=== PATIENT | female | born 1930 | race Caucasian/White ===

== ENCOUNTER 2018-11-09 07:01 | Inpatient (IN) ==
[2018-11-09 08:12] LABS: Hematocrit 35.7 % (35.3-44.9); Hemoglobin 11.4 g/dL (11.5-15.4); Mean Corpuscular HGB Conc 31.9 g/dL (31.6-35.5); Mean Corpuscular Hemoglobin 26.5 pg (28.0-33.3); Mean Platelet Volume 9.8 fL (9.4-12.4); Platelet Count 243 K/mcL (140-400); Red Cell Distribution Width 15.1 % (11.5-14.5)
--- NOTE | 2018-11-09 08:13 | Emergency Department Note ---
Disposition Clinical Impression: Diabetes Qualifiers: Diabetes mellitus type: type 2 Diabetes mellitus fpc insulin use: unspecified fpc insulin use status Diabetes mellitus complication status: with unspecified complications Qualified Code(s): E11.8 - Type 2 diabetes mellitus with unspecified complications Hypertension Qualifiers: Hypertension type: unspecified Qualified Code(s): I10 - Essential (primary) hypertension Transient cerebral ischemia Qualifiers: Transient cerebral ischemia type: unspecified Qualified Code(s): G45.9 - Transient cerebral ischemic attack, unspecified Disposition: Admitted As Inpatient Referrals: Nacho Rai MD [Primary Care Provider] - Forms: ED Satisfaction Letter Time of Disposition: 10:03 Neuro HPI - General Chief Complaint: ED Neuro Symptoms/Deficit Stated Complaint: stroke symptoms Time Seen by Provider: 11/09/18 07:14 Source: patient, EMS Mode of arrival: EMS Limitations: no limitations Nursing Notes Reviewed: Yes Vital Signs Reviewed: Yes - History of Present Illness HPI Narrative: 88 yo female with past medical history of diabetes and hypertension presents to the emergency department with acute onset of left-sided weakness. Patient states she woke up at about 545 this morning and was going about her daily routine and noticed that her left leg felt significantly weaker to her than normal. She was unable to continue walking without holding onto something. Then when she was trying to drink her coffee her left arm was also feeling wea ker than normal and she was unable to hold the coffee cup. She has never had any symptoms like this before and has not had a stroke before. She called her son-in-law who states that her speech sounded slurred to him and he called 911. She states she is worried about stroke. She denies any headache, dizziness, lightheadedness, chest pain, shortness of breath, abdominal pain, nausea vomiting, diarrhea. She has not been recently ill. Not take any blood thinning medications. She has not had any recent surgeries. She has not recently had her head. She has never had any significant bleeding event or intracranial hemorrhage. She does have macular degeneration in her left eye but states that her vision has not changed in this eye since onset of symptoms. - Related Data Home Medications: Home Medications Medication Instructions Recorded Confirmed Amlodipine Besylate 11/09/18 11/09/18 Chlorthalidone 11/09/18 11/09/18 Levothyroxine [Synthroid] 175 mcg PO DAILY 11/09/18 11/09/18 Losartan Potassium [Cozaar] 100 mg PO DAILY 11/09/18 11/09/18 SitaGLIPtin [Januvia] 100 mg PO DAILY 11/09/18 11/09/18 All systems ED: reviewed and negative except as stated. Review of Systems: As Per HPI Constitutional: Reports: weakness. Denies: fever Cardiovascular: Denies: chest pain, dyspnea on exertion Respiratory: Denies: cough, dyspnea, wheezes Gastrointestinal: Denies: abdominal pain, nausea, vomiting Musculoskeletal: Denies: back pain, neck pain Neurological: Reports: weakness, numbness. Denies: headache, paresthesias Endocrine: Denies: fatigue Past Medical History - Past Medical History Attestation: Yes The following information was validated with the patient. Source: patient Medical history: Reports: diabetes, hypertension, thyroid disease Psychiatric history: Reports: no psych history - Social History Smoking Status: Never smoker Physical Exam - General Limitations: no limitations General appearance: alert, in no apparent distress - Head Head exam: atraumatic, normocephalic - Eye Eye exam: Present: normal appearance, PERRL, EOMI, other (Left eye with decreased peripheral vision secondary to macular degeneration, patient's baseline) - ENT ENT exam: normal exam, normal oropharynx - Neck Neck exam: Present: normal inspection. Absent: tenderness, lymphadenopathy - Chest Chest inspection: Present: normal inspection. Absent: tenderness - Respiratory Respiratory exam: Present: normal lung sounds bilaterally. Absent: wheezes - Cardiovascular Cardiovascular exam: Present: regular rate, normal rhythm, diastolic murmur - Abdominal Exam Abdominal exam: Present: soft, Non-Tender. Absent: distention, guarding, rebound, rigidity - Extremities Exam Extremities exam: Present: other (weakness present in LLE with decreased sensation and ataxia). Absent: tenderness, pedal edema - Neurological Exam Neurological exam: Present: alert, oriented X3, motor sensory deficit, other (For detailed neuro exam please refer to the NIH scale) - Psychiatric Psychiatric exam: Present: normal affect, normal mood - Skin Skin exam: Present: warm, dry, intact Course Vital Signs Temperature 98.3 F 11/09/18 07:07 Pulse Rate 78 11/09/18 07:07 Respiratory Rate 14 11/09/18 07:07 Blood Pressure 163/56 11/09/18 07:07 O2 Sat by Pulse Oximetry 98 11/09/18 07:07 Temperature 98.3 F 11/09/18 07:07 Pulse Rate 68 11/09/18 09:45 Respiratory Rate 14 11/09/18 09:45 Blood Pressure 136/44 11/09/18 09:45 O2 Sat by Pulse Oximetry 97 11/09/18 08:00 Oxygen Delivery Oxygen Delivery Room Air Neuro Symptoms/Deficit - MDM Narrative Medical decision making narrative: Patient presents with acute neuro symptoms with onset less than 1 hour prior to arrival. Patient states the left-sided weakness has been worsening since onset for a stroke alert was called. Patient was taken to CAT scan prior to EKG and blood work being done. NIH scale was performed at the bedside prior to CAT scan. Upon completion of CAT scan spoke with Dr. Robison, neurologist, from [facility] repeated NIH scale. Patient's NIH scale had resolved to a 0 at this time and CAT scan is negative or acute intracranial hemorrhage. Dr. Robison suggests that with these rapidly improving symptoms that he would not suggest any intervention but he does suggest admission for MRI and further TIA workup. This was explained to the patient and her family at this time and they are agreeable with admission. Awaiting lab results at this time. 0845 - Pt is doing well at this time. Her CT head, CXR, EKG, CBC, troponin, and PT/INR are all wnl. Creatinine is mildly elevated but at patients baseline. Pt will be admitted to the hospitalist at this time. 1000 - Pt has been accepted to the hospital by Dr. Gallardo - Medical Records Medical records reviewed: Yes I reviewed the patient's medical records. - Lab Data Lab results reviewed: Yes I reviewed the patient's lab results. Result diagrams: 11/09/18 07:52 11/09/18 07:52 Lab Results 11/09/18 11/09/18 11/09/18 Range/Units 07:52 07:52 07:52 WBC 6.5 (4.3-11.1) K/mcL RBC 4.30 (3.82-4.97) M/mcL Hgb 11.4 L (11.5-15.4) g/dL Hct 35.7 (35.3-44.9) % MCV 83.0 (83.0-100.0) fL MCH 26.5 L (28.0-33.3) pg MCHC 31.9 (31.6-35.5) g/dL RDW 15.1 H (11.5-14.5) % Plt Count 243 (140-400) K/mcL MPV 9.8 (9.4-12.4) fL PT 10.9 (9.4-12.1) Seconds INR 1.0 APTT 33.4 (26.0-36.0) Seconds Sodium 140 (136-145) mEq/L Potassium 4.0 (3.5-5.1) mEq/L Chloride 105 (98-107) mEq/L Carbon Dioxide 27 (23-29) mEq/L BUN 31 H (8-23) mg/dL Creatinine 1.23 H (0.60-1.20) mg/dL Est GFR ( Amer) 50 L (> 60) Est GFR (Non-Af Amer) 41 L (> 60) BUN/Creatinine Ratio 25 (6-26) Glucose 210 H (70-105) mg/dL Calculated Osmolality 303 H (280-300) Calcium 9.6 (8.6-10.3) mg/dL Troponin I < 0.03 (< 0.04) ng/mL - Radiology Data Radiology results reviewed: Yes I reviewed the patient's radiology results. - EKG Data EKG attestation: Yes I reviewed and interpreted this EKG. EKG results narrative: EKG obtained at 17:25 on 11/09/2018 Her rate 72 bpm, [place] interval 2:30, QRS duration 108, QT 423, QTC 463 Sinus rhythm with first-degree heart block. No acute ST segment elevations or depressions. No other T-wave abnormalities. No acute changes when compared to previous EKG dated 05/07/2004. NIH Stroke Scale - Level of Consciousness LOC: Alert - LOC Questions LOC Questions: Answers both correctly - LOC Commands LOC Commands: Performs both correctly - Best Gaze Best Gaze: Normal - Visual Visual: No visual loss - Facial Palsy Facial Palsy: Normal - Motor Arms Motor Arm-Left: No drift for 10 seconds Motor Arm-Right: No drift for 10 seconds - Motor Legs Motor Leg-Left: Drift, does NOT hit bed Motor Leg-Right: No drift for 5 seconds - Limb Ataxia Limb Ataxia: Present in ONE limb - Sensory Sensory: Mild to moderate loss, "not as sharp" - Best Language Best Language: No aphasia - Dysarthria Dysarthria: Normal - Extinction and Inattention Extinction and Inattention: Normal - NIHSS Total Score NIHSS Total Score: 3 TPA Checklist - LKW: 3-4.5 hrs Add. Warnings/Precautions Patient/family understanding: The patient/family members have been counseled and understood the risk, benefit, and alternatives of treatment.
[2018-11-09 08:22] LABS: Prothrombin Time 10.9 Seconds (9.4-12.1)
[2018-11-09 08:23] LABS: BUN/Creatinine Ratio 25 (6-26); Blood Urea Nitrogen 31 mg/dL (8-23); Calcium 9.6 mg/dL (8.6-10.3); Carbon Dioxide 27 mEq/L (23-29); Chloride 105 mEq/L (98-107); Glucose 210 mg/dL (70-105); Osmolality,Calculated 303 (280-300); Sodium 140 mEq/L (136-145); Troponin I < 0.03 ng/mL (< 0.04); eGFR For Non-African Americans 41 (> 60)
[2018-11-09 08:25] LABS: Activated Partial Thrombo Time 33.4 Seconds (26.0-36.0)
--- NOTE | 2018-11-09 08:42 | Emergency Department Note ---
Disposition Clinical Impression: Diabetes Qualifiers: Diabetes mellitus type: type 2 Diabetes mellitus nursing home insulin use: unspecified nursing home insulin use status Diabetes mellitus complication status: with unspecified complications Qualified Code(s): E11.8 - Type 2 diabetes mellitus with unspecified complications Hypertension Qualifiers: Hypertension type: unspecified Qualified Code(s): I10 - Essential (primary) hypertension Transient cerebral ischemia Qualifiers: Transient cerebral ischemia type: unspecified Qualified Code(s): G45.9 - Transient cerebral ischemic attack, unspecified Disposition: Admitted As Inpatient Forms: ED Satisfaction Letter Time of Disposition: 08:42 General Adult HPI - General Chief complaint: ED Neuro Symptoms/Deficit Stated complaint: stroke symptoms Time Seen by Provider: 11/09/18 07:14 Source: patient, EMS Mode of arrival: EMS Limitations: no limitations Nursing Notes Reviewed: Yes Vital Signs Reviewed: Yes - History of Present Illness HPI Narrative: ED attending attestation note: I examined this patient and my medical decision-making was reviewed with the emergency medicine resident TRAY CARLSON. I agree with the documented findings, disposition and treatment plan as described except to the extent set forth below. 4 any procedures performed I was present for the critical portions, and for any EKGs performed and reviewed I have looked over the EKG and interpretations and discussed with provider Briefly: A 8-year-old female no prior history of stroke woke up at 5:00 this morning medicine physician normally does this about 6:30 that she felt heavy and weak on her left leg and arm there was no speech disturbance and a score of 3 her blood sugar was 100 stroke alert was called initial head CT read by radiology as no acute process EKG shows no acute ischemic changes screening labs are within normal limits patient is not a TPA candidate will be admitted for TIA. Her symptoms are actually resolving NIH's actually dropping to 0. Admission disposition pending Pain Scale: 0 - Related Data Home Medications Medication Instructions Recorded Confirmed Amlodipine Besylate 11/09/18 11/09/18 Chlorthalidone 11/09/18 11/09/18 Levothyroxine [Synthroid] 175 mcg PO DAILY 11/09/18 11/09/18 Losartan Potassium [Cozaar] 100 mg PO DAILY 11/09/18 11/09/18 SitaGLIPtin [Januvia] 100 mg PO DAILY 11/09/18 11/09/18 Constitutional: Reports: weakness. Denies: fever Cardiovascular: Denies: chest pain, dyspnea on exertion Respiratory: Denies: cough, dyspnea, wheezes Gastrointestinal: Denies: abdominal pain, nausea, vomiting Musculoskeletal: Denies: back pain, neck pain Neurological: Reports: weakness, numbness. Denies: headache, paresthesias Endocrine: Denies: fatigue Past Medical History - Past Medical History Medical history: Reports: diabetes, hypertension, thyroid disease Psychiatric history: Reports: no psych history - Social History Smoking Status: Never smoker Physical Exam - General Limitations: no limitations General appearance: alert, in no apparent distress Course Vital Signs Temperature 98.3 F 11/09/18 07:07 Pulse Rate 78 11/09/18 07:07 Respiratory Rate 14 11/09/18 07:07 Blood Pressure 163/56 11/09/18 07:07 O2 Sat by Pulse Oximetry 98 11/09/18 07:07 Temperature 98.3 F 11/09/18 07:07 Pulse Rate 71 11/09/18 08:00 Respiratory Rate 16 11/09/18 08:00 Blood Pressure 155/46 11/09/18 08:00 O2 Sat by Pulse Oximetry 97 11/09/18 08:00 Oxygen Delivery Oxygen Delivery Room Air Medical Decision Making - Lab Data Result diagrams: 11/09/18 07:52 11/09/18 07:52 Lab Results 11/09/18 11/09/18 11/09/18 Range/Units 07:52 07:52 07:52 WBC 6.5 (4.3-11.1) K/mcL RBC 4.30 (3.82-4.97) M/mcL Hgb 11.4 L (11.5-15.4) g/dL Hct 35.7 (35.3-44.9) % MCV 83.0 (83.0-100.0) fL MCH 26.5 L (28.0-33.3) pg MCHC 31.9 (31.6-35.5) g/dL RDW 15.1 H (11.5-14.5) % Plt Count 243 (140-400) K/mcL MPV 9.8 (9.4-12.4) fL PT 10.9 (9.4-12.1) Seconds INR 1.0 APTT 33.4 (26.0-36.0) Seconds Sodium 140 (136-145) mEq/L Potassium 4.0 (3.5-5.1) mEq/L Chloride 105 (98-107) mEq/L Carbon Dioxide 27 (23-29) mEq/L BUN 31 H (8-23) mg/dL Creatinine 1.23 H (0.60-1.20) mg/dL Est GFR ( Amer) 50 L (> 60) Est GFR (Non-Af Amer) 41 L (> 60) BUN/Creatinine Ratio 25 (6-26) Glucose 210 H (70-105) mg/dL Calculated Osmolality 303 H (280-300) Calcium 9.6 (8.6-10.3) mg/dL Troponin I < 0.03 (< 0.04) ng/mL
--- NOTE | 2018-11-09 09:55 | Internal Med History&Physical ---
Date of Encounter: 11/09/18 Time of Encounter: 09:54 Internal Medicine - H&P: HPI Chief complaint: left-sided weakness History of present illness: 88 years old white female with past medical history of diabetes mellitus, hypertension who presented to the emergency room but department with acute onset of left-sided weakness that started early this morning. The patient stated that she has never had similar symptoms in the past and she was concern about the possibility that she might have stroke so she called 911, open on arrival to the ER the patient stated had her acute symptoms for almost an hour prior to her arrival. Stroke alert was called , however by the time [facility] staff was contacted the repeat NIH scale was 0 0.0. CAT scan of the head was was no significant evidence of intracranial bleed, she was admitted for further evaluation and management of TIA Past Med Surg Social Fam HX - Past Medical History Medical history: diabetes, hypertension, thyroid disease Psychiatric history: no psych history - Social History Smoking Status: Never smoker Internal Medicine - H&P: Meds Amlodipine Besylate 11/09/18 [History] Chlorthalidone 11/09/18 [History] Levothyroxine [Synthroid] 175 mcg PO DAILY 11/09/18 [History] Losartan Potassium [Cozaar] 100 mg PO DAILY 11/09/18 [History] SitaGLIPtin [Januvia] 100 mg PO DAILY 11/09/18 [History] Allergy/AdvReac Type Severity Reaction Status Date / Time Amoxicillin Allergy Rash Verified 11/09/18 11:06 All Systems PM: A 10-system review of systems was performed and is negative for pertinent findings except as documented above in the HPI. - Constitutional Vitals: Temp Pulse Resp BP Pulse Ox 98.3 F 71 16 155/46 97 11/09/18 07:07 11/09/18 08:00 11/09/18 08:00 11/09/18 08:00 11/09/18 08:00 General appearance: Present: A&O X 3 Exam: As below - Head Head exam: Present: atraumatic, normocephalic - Neck Neck exam general surgery: Present: supple, trachea midline. Absent: lymphade nopathy - Respiratory Respiratory exam: Present: CTAB. Absent: accessory muscle use, rales, rhonchi, wheezes - Cardiovascular Cardiovascular exam: Present: RRR, +S1, +S2. Absent: diastolic murmur, gallop, rubs, systolic murmur - GI/Abdominal GI/Abdominal exam: Present: normal bowel sounds, soft, no peritoneal signs. Absent: distended, tenderness - Extremities Exam Extremities exam: Present: warm, radial pulses palpable and symmetrical. Absent: calf tenderness, cyanotic, pedal edema Internal Med - H&P Results - Labs CBC & Chem 7: 11/09/18 07:52 11/09/18 07:52 Labs: Short CBC 11/09/18 Range/Units 07:52 WBC 6.5 (4.3-11.1) K/mcL Hgb 11.4 L (11.5-15.4) g/dL Hct 35.7 (35.3-44.9) % Plt Count 243 (140-400) K/mcL BMP 11/09/18 07:52 Sodium 140 Potassium 4.0 Chloride 105 Carbon Dioxide 27 BUN 31 H Creatinine 1.23 H Glucose 210 H Calcium 9.6 Cardiac Enzymes 11/09/18 Range/Units 07:52 Troponin I < 0.03 (< 0.04) ng/mL - Impressions ITS Impressions Head CT 11/09/18 07:16 IMPRESSION: No acute intracranial abnormality. Mild cerebral atrophy. Mild chronic small vessel ischemic changes. D/ / 11/09/2018 07:49:50 Cheryl Lopez MD / [facility] Interpreting Provider: Cheryl Lopez MD Chest X-Ray 11/09/18 07:31 IMPRESSION: No acute process. D/ / 11/09/2018 08:30:34 Tu Crowe MD / [facility] Interpreting Provider: Tu Crowe MD - Assessment and Plan (1) Transient cerebral ischemia Current Visit: Yes Status: Acute Assessment and plan: *TIA PLAN: -CPP x 2 q 8 hr -EKG now and in AM -ASA - ECHo - B/L Carotid Doppler -Tylenol 650 mg PO q 4-6 hr PRN headache (2) Hypertension Current Visit: Yes Status: Acute Assessment and plan: We will hold home meds to allow for permissive hypertension with goal SBP less than 170 DBP less than 100 Qualifiers: Hypertension type: unspecified Qualified Code(s): I10 - Essential (primary) hypertension (3) Diabetes Current Visit: Yes Status: Acute Assessment and plan: We will start insulin sliding scale with coverage Qualifiers: Diabetes mellitus type: type 2 Diabetes mellitus skilled nursing insulin use: unspecified terminal operator insulin use status Diabetes mellitus complication status: with unspecified complications Qualified Code(s): E11.8 - Type 2 diabetes mellitus with unspecified complications (4) Hypothyroidism Current Visit: Yes Status: Acute Assessment and plan: We will continue home thyroxine Qualifiers: Qualified Code(s): E03.9 - Hypothyroidism, unspecified (5) CKD (chronic kidney disease) stage 3, GFR 30-59 ml/min Current Visit: Yes Status: Acute Assessment and plan: Cr is stable around baseline, will cont to monitor renal function, renal dosing of meds per-current eGFR (6) Anemia in CKD (chronic kidney disease) Current Visit: Yes Status: Acute Assessment and plan: HGB target is 10-11 for CKD, cont. to monitor Qualifiers: Qualified Code(s): N18.9 - Chronic kidney disease, unspecified; D63.1 - Anemia in chronic kidney disease (7) DVT prophylaxis Current Visit: Yes Status: Acute Assessment and plan: We will place SCDs - Time Spent With Patient Total time spent is greater than 50% in coordination of care (as documented) at patient's floor/unit and/or counseling patient:
[2018-11-09] MEDS ORDERED: Naloxone 0.4 MG/ML INJ IVP PRN (12:21)
--- NOTE | 2018-11-09 15:58 | Neurology - Consult Note ---
<Mario Sorto - Last Filed: 11/09/18 15:55> Date of Encounter: 11/09/18 Time of Encounter: 15:55 Assessment and Plan (1) Acute CVA (cerebrovascular accident) Current Visit: Yes Status: Acute Acute CVA, most likely ischemic event MRI findings showing acute infarcts in the posterior right putamen and posterior right periventricular white matter; minimal chronic microvascular white matter ischemic disease also seen Presented with left arm and leg weakness Symptoms have significantly improved and she is back to baseline status Neurological exam is nonfocal She is refusing simvastatin She has taken statins in the past and developed muscles aches and pain; defer to IM team regarding statin alternative Discussed risk factor modifications and medication compliance for future stroke prevention PLAN: -Allow for permissive hypertension with goal SBP less than 170 DBP less than 100 -BL Carotid doppler pending -TTE pending -Start ASA; patient is ASA naive -NIHSS now, then neuro assessment per CVA protocol -Recommend PT/OT consultation History of Present Illness Chief complaint: Acute CVA HPI: Ms. Couch is a 88 year old female with a PMH of DM, HTN and hypothyroidism. She presents to [facility] ED today for evaluation of acute onset of left arm and leg weakness which occurred approximately 6 AM this morning while eating her breakfast. She reports that she had difficulty lifting her leg and holding onto a coffee cup and lifting her arm and these concerns prompted her to seek evaluation in the ED. She denies any prior stroke or TIA history. A [facility] stroke alert was called and it was determined that the patient was not a TPA candidate. Patient denies any additional neurological deficits including visual disturbances, dizziness, dysphagia, dysarthria or paresthesias. Further, she denies chest pain, shortness of breath or palpitations. CT of the head in the ED negative for acute intracranial abnormality. At the time of my assessment the patient is sitting up at the bedside chair reports that she has been ambulatory since admission without difficulty. Further, she reports that the left-sided weakness has significantly improved and she is almost back to baseline. An MRI of the brain has been completed and shows an acute ischemic event with the following findings; acute infarcts are noted in the posterior right putamen and posterior right periventricular white matter. Minimal chronic microvascular white matter ischemic disease is seen. Neurology will continue to follow and provide recommendations for acute CVA. Past Med Surg Social Fam HX - Past Medical History Medical history: diabetes, hypertension, thyroid disease Psychiatric history: no psych history - Past Surgical History Surgical History: other Additional surgical history: cataract sx - Social History Smoking Status: Never smoker Alcohol use: none Drug use: none - Additional Family History Additional family history: Reviewed and found to be noncontributory Medications and Allergies Amlodipine Besylate 11/09/18 [History] Chlorthalidone 11/09/18 [History] Levothyroxine [Synthroid] 175 mcg PO DAILY 11/09/18 [History] Losartan Potassium [Cozaar] 100 mg PO DAILY 11/09/18 [History] SitaGLIPtin [Januvia] 100 mg PO DAILY 11/09/18 [History] Allergy/AdvReac Type Severity Reaction Status Date / Time Amoxicillin Allergy Rash Verified 11/09/18 11:06 All Systems: The remainder of the systems were reviewed and are negative Review of Systems: REVIEW OF SYSTEMS NEUROLOGIC: Negative for any blurry vision, blind spots, double vision, facial asymmetry, dysphagia, dysarthria, hemiparesis, hemisensory deficits, vertigo, ataxia, seizures, paralysis, tingling, numbness CARDIAC: Negative for any chest pain, dyspnea on exertion, peripheral edema or palpitations MUSCULOSKELETAL: Positive strength to left side Physical Examination - Vital Signs Vital Signs: Initial Vital Signs Temp Pulse Resp BP Pulse Ox 98.3 F 78 14 163/56 98 11/09/18 07:07 11/09/18 07:07 11/09/18 07:07 11/09/18 07:07 11/09/18 07:07 - Exam Exam: Examination: General Examination: *CONSTITUTIONAL: Alert and orientedx3, no acute distress *GENERAL APPEARANCE OF PATIENT appears healthy and well groomed *EYES: pupils equal, round, reactive to light and accommodation, conjunctiva clear without masses or ulcerations, fundi normal. *CARDIOVASCULAR no peripheral edema, distal temperature normal, dorsalis pedis pulses normal. See vital signs Musculoskeletal: *GAIT AND STATION normal, with normal Romberg testing, no abnormalities such as broad base gait or spasticity *ASSESSMENT OF MUSCLE STRENGTH IN THE UPPER AND LOWER EXTREMITIES bilateral deltoid, bicep, tricep, protection consultant strength, hip flexors ,anterior tibialis, dorsoflexion of the foot 5/5 *MUSCLE TONE IN THE UPPER AND LOWER EXTREMITIES normal. No abnormal movements, fasciculations or atrophy identified. Neurological: *ORIENTATION to person, situation, time and place *RECURRENT AND REMOTE MEMORY intact *ATTENTION AND CONCENTRATION are normal *LANGUAGE FUNCTION no significant aphasia or dysarthia was noted. *FUND OF KNOWLEDGE aware of current events, past history, vocabulary *MENTAL attention span and concentration normal. *CN II optic fundi were normal, no papilledema noted. *CN III,IV, PERRLA extraocular eye movements were full, no nystagmus and no ptosis noted. *CN V shows normal sensation and jaw opens symmetrically. *CN VII shows normal facial movement symmetrically, upper and lower bilaterally. *CN VIII shows no significant hearing loss on exam *CN IX,,X palate elevated symmetrically *CN XI normal strength in the sternocleidomastoid muscles, symmetrical shoulder shrugging. *CN XII tongue protruded in the midline, with normal strength and movement. *SENSORY EXAMINATION light touch intact *REFLEXES: deep tendon reflexes were normal and symmetrical , grade 2/4 diffusely, no pathological reflexes were noted. *CEREBELLAR TESTING normal finger to nose, heel/knee/yip *PAIN LEVEL 0/10 Results - Laboratory Findings CBC and BMP: 11/09/18 07:52 11/09/18 07:52 Abnormal lab findings: Abnormal lab results Hgb 11.4 g/dL (11.5-15.4) L 11/09/18 07:52 MCH 26.5 pg (28.0-33.3) L 11/09/18 07:52 RDW 15.1 % (11.5-14.5) H 11/09/18 07:52 BUN 31 mg/dL (8-23) H 11/09/18 07:52 1.23 mg/dL (0.60-1.20) H 11/09/18 07:52 Est GFR ( Amer) 50 (> 60) L 11/09/18 07:52 Est GFR (Non-Af Amer) 41 (> 60) L 11/09/18 07:52 Glucose 210 mg/dL (70-105) H 11/09/18 07:52 303 (280-300) H 11/09/18 07:52 - Diagnostic Findings Additional findings: MR/MR head/brain wo con IMPRESSION: 1. Acute infarcts are noted in the posterior right putamen and posterior right periventricular white matter. 2. Minimal chronic microvascular white matter ischemic disease. Consult Discharge Plan - Plan Instructions: Transient Ischemic Attack (GEN), Diabetes Mellitus Type 2 in Adults (DC) Referrals: Nacho Rai MD [Primary Care Provider] - <EstuardoPawel Samuels - Last Filed: 11/09/18 18:00> Date of Encounter: 11/09/18 Assessment and Plan (1) Acute CVA (cerebrovascular accident) Current Visit: Yes Status: Acute I have personally performed a [id number] assessment of the patient and have reviewed the PA/CLINICAL INFORMATICS PHYSICIAN note. My impressions are as follows: I agree with Rafi's assessment and plan as stated above. Patient's deficits have now completely resolved. Further recommendations will be made pending the outcome of the carotid Doppler in the TTE. Patient has agreed to start aspirin therapy. I will defer recommendation for alternatives to statin therapy to IM History of Present Illness HPI: Chart was reviewed, patient was seen and examined independently. Case was discussed with Mario. I agree with his documentation of the history of present illness as stated above. Patient's deficits have all now completely resolved and she is back to her normal baseline. I did review the MRI scan of the brain personally which does reveal infarct in the right basal ganglia. He does have stroke risk factors namely age, hypertension and diabetes. All Systems: The remainder of the systems were reviewed and are negative Review of Systems: The balance of the systems review is negative. Physical Examination - Vital Signs Vital Signs: Initial Vital Signs Temp Pulse Resp BP Pulse Ox 98.3 F 78 14 163/56 98 11/09/18 07:07 11/09/18 07:07 11/09/18 07:07 11/09/18 07:07 11/09/18 07:07 - Exam Exam: I have personally performed a [id number] assessment of the patient and have reviewed the PA/CLINICAL INFORMATICS PHYSICIAN note. My impressions are as follows: I agree with the neurologic examination is documented above. Results - Laboratory Findings CBC and BMP: 11/09/18 07:52 11/09/18 07:52 Abnormal lab findings: Abnormal lab results Hgb 11.4 g/dL (11.5-15.4) L 11/09/18 07:52 MCH 26.5 pg (28.0-33.3) L 11/09/18 07:52 RDW 15.1 % (11.5-14.5) H 11/09/18 07:52 BUN 31 mg/dL (8-23) H 11/09/18 07:52 1.23 mg/dL (0.60-1.20) H 11/09/18 07:52 Est GFR ( Amer) 50 (> 60) L 11/09/18 07:52 Est GFR (Non-Af Amer) 41 (> 60) L 11/09/18 07:52 Glucose 210 mg/dL (70-105) H 11/09/18 07:52 303 (280-300) H 11/09/18 07:52
[2018-11-09] MEDS: Aspirin 81 MG TAB.CHEW PO SCH (17:27)
[2018-11-09] MEDS ORDERED: Perflutren Lipid Microsphere 1.3 ML in 0.9 % Sodium Chloride 8.7 ML IVP ONE (20:09)
[2018-11-09] MEDS ORDERED: D5% in Water 1,000 ML IVC PRN (21:27)
[2018-11-09] MEDS ORDERED: Dextrose Gel 15 GM/37.5 ML TUBE PO PRN ×2 (21:27)
[2018-11-09] MEDS ORDERED: *HR* Dextrose 50 % in Water (Syg) 50 ML SYRINGE IVP PRN (21:27)
[2018-11-09 22:21] LABS: Estimated Average Glucose 160 mg/dl; Hemoglobin A1C 7.2 %
[2018-11-10] MEDS: Insulin LISPRO 300 UNITS/3 ML VIAL SQ SCH ×4 (04:20→17:45)
--- NOTE | 2018-11-10 06:18 | Electrocardiograph Report ---
[facility] Test Date: 2018-11-09 Pat Name: Jessica Couch Department: EXAM4 Room: 3B Gender: F Salary Manager: : [id number] Requested By: Gayle Pendleton Order Number: [id number] Reading MD: Dinh Hunt Measurements Intervals [place] Rate: 72 P: 7 HI: 230 QRS: -55 QRSD: 108 T: 65 QT: 423 QTc: 463 Interpretive Statements Sinus rhythm Prolonged HI interval Consider left atrial enlargement Left anterior fascicular block Abnormal R-wave progression, early transition Probable left ventricular hypertrophy Electronically Signed On 11-10-2018 6:16:55 EDT by Dinh Hunt
[2018-11-10 07:29] LABS: Basophils % 0.7 %; Eosinophils # 0.2 K/mcL (0.0-0.6); Eosinophils % 3.5 %; Hematocrit 35.1 % (35.3-44.9); Immature Granulocytes % 0.2 % (0-4); Lymphocytes % 16.6 %; Mean Corpuscular HGB Conc 31.3 g/dL (31.6-35.5); Mean Corpuscular Hemoglobin 26.1 pg (28.0-33.3); Mean Corpuscular Volume 83.2 fL (83.0-100.0); Mean Platelet Volume 9.9 fL (9.4-12.4); Monocytes # 0.4 K/mcL (0.0-1.3); Monocytes % 7.3 %; Neutrophils # 4.3 K/mcL (1.6-8.9); Platelet Count 225 K/mcL (140-400); Red Blood Count 4.22 M/mcL (3.82-4.97); Red Cell Distribution Width 15.3 % (11.5-14.5); Segmented Neutrophils % 71.7 %
[2018-11-10 07:38] LABS: INR 1.1; Prothrombin Time 12.6 Seconds (9.4-12.1)
[2018-11-10 07:41] LABS: Activated Partial Thrombo Time 34.1 Seconds (26.0-36.0)
[2018-11-10 07:45] LABS: Albumin 3.8 g/dL (3.5-5.7); Albumin/Globulin Ratio 1.5 (1.1-2.2); Bilirubin,Total 0.4 mg/dL (0.3-1.0); Calcium 9.6 mg/dL (8.6-10.3); Chol/HDL Ratio 5.5 (0-4.9); Globulin 2.5 g/dL (2.4-3.5); Phosphorous 4.1 mg/dL (2.7-4.5); Potassium 4.1 mEq/L (3.5-5.1); Total Protein 6.3 g/dL (6.4-8.9)
[2018-11-10] MEDS: *HR* SitaGLIPtin 25 MG TABLET PO SCH (08:05)
[2018-11-10] MEDS: Aspirin 81 MG TAB.CHEW PO SCH (08:05)
[2018-11-10] MEDS ORDERED: *HR* SitaGLIPtin 100 MG TABLET PO SCH (09:00)
--- NOTE | 2018-11-10 11:10 | Neurology Progress Note ---
<Mario Sorto - Last Filed: 11/10/18 11:08> Date of Encounter: 11/10/18 Time of Encounter: 11:08 Assessment and Plan (1) Acute CVA (cerebrovascular accident) Current Visit: Yes Status: Acute Clinically, the patient remained stable overnight. There are no new neurological deficits on exam this morning.Neuro exam remains nonfocal. I have reviewed the preliminary results of the carotid duplex report and she appears to have nonstenotic plaque bilaterally. The echocardiogram is still pending. At this juncture we continue to recommend aspirin therapy. The primary team has recommended Zetia as an alternative to statin therapy. Rec PT/OT evaluation. C/W medical and supportive care. Further recommendations pending TTE. Subjective Principal diagnosis: Acute CVA Interval history: Patient seen in follow-up for an acute CVA. MRI findings show an acute infarct in the posterior right putamen and posterior right periventricular white matter. On presentation she was having left arm and leg weakness which had rapidly improved. Today her neuro exam remains nonfocal however, she is complaining of some left leg weakness with ambulation. I did not identify any obvious left leg weakness during ambulation but nonetheless she should remain overnight for further monitoring and PT/OT evaluation Objective - Constitutional Vitals: Temp Pulse Resp BP Pulse Ox 98.2 F 67 16 133/52 97 11/10/18 07:04 11/10/18 07:04 11/10/18 07:04 11/10/18 07:04 11/10/18 07:04 Exam: Examination: General Examination: *CONSTITUTIONAL: Alert and orientedx3, no acute distress *GENERAL APPEARANCE OF PATIENT appears healthy and well groomed *EYES: pupils equal, round, reactive to light and accommodation, conjunctiva clear without masses or ulcerations, fundi normal. *CARDIOVASCULAR no peripheral edema, distal temperature normal, dorsalis pedis pulses normal. See vital signs Musculoskeletal: *GAIT AND STATION normal, with normal Romberg testing, no abnormalities seen during gait exam *ASSESSMENT OF MUSCLE STRENGTH IN THE UPPER AND LOWER EXTREMITIES bilateral deltoid, bicep, tricep, financial aid strength, hip flexors ,anterior tibialis, dorsoflexion of the foot 5/5 *MUSCLE TONE IN THE UPPER AND LOWER EXTREMITIES normal. No abnormal movements, fasciculations or atrophy identified. Neurological: *ORIENTATION to person, situation, time and place *RECURRENT AND REMOTE MEMORY intact *ATTENTION AND CONCENTRATION are normal *LANGUAGE FUNCTION no significant aphasia or dysarthia was noted. *FUND OF KNOWLEDGE aware of current events, past history, vocabulary *MENTAL attention span and concentration normal. *CN II optic fundi were normal, no papilledema noted. *CN III,IV, PERRLA extraocular eye movements were full, no nystagmus and no ptosis noted. *CN V shows normal sensation and jaw opens symmetrically. *CN VII shows normal facial movement symmetrically, upper and lower bilaterally. *CN VIII shows no significant hearing loss on exam *CN IX,,X palate elevated symmetrically *CN XI normal strength in the sternocleidomastoid muscles, symmetrical shoulder shrugging. *CN XII tongue protruded in the midline, with normal strength and movement. *SENSORY EXAMINATION light touch intact *REFLEXES: deep tendon reflexes were normal and symmetrical , grade 2/4 diffusely, no pathological reflexes were noted. *CEREBELLAR TESTING normal finger to nose, heel/knee/yip *PAIN LEVEL 0/10 Results - Laboratory Findings CBC and BMP: 11/10/18 07:13 11/10/18 07:13 Abnormal lab findings: Abnormal lab results Hgb 11.0 g/dL (11.5-15.4) L 11/10/18 07:13 Hct 35.1 % (35.3-44.9) L 11/10/18 07:13 MCH 26.1 pg (28.0-33.3) L 11/10/18 07:13 MCHC 31.3 g/dL (31.6-35.5) L 11/10/18 07:13 RDW 15.3 % (11.5-14.5) H 11/10/18 07:13 PT 12.6 Seconds (9.4-12.1) H 11/10/18 07:13 BUN 28 mg/dL (8-23) H 11/10/18 07:13 1.27 mg/dL (0.60-1.20) H 11/10/18 07:13 Est GFR ( Amer) 48 (> 60) L 11/10/18 07:13 Est GFR (Non-Af Amer) 40 (> 60) L 11/10/18 07:13 Glucose 151 mg/dL (70-105) H 11/10/18 07:13 POC Glucose 139 mg/dL (70-99) H 11/10/18 05:47 7.2 % (-5.6) H 11/09/18 07:56 303 (280-300) H 11/09/18 07:52 AST 10 Units/L (13-39) L 11/10/18 07:13 6.3 g/dL (6.4-8.9) L 11/10/18 07:13 Cholesterol 254 mg/dL (< 200) H 11/10/18 07:13 LDL Cholesterol, Calc 180 mg/dL (0-99) H 11/10/18 07:13 5.5 (0-4.9) H 11/10/18 07:13 Consult Discharge Plan - Plan Instructions: Transient Ischemic Attack (GEN), Diabetes Mellitus Type 2 in Adults (DC) Referrals: Nacho Rai MD [Primary Care Provider] - 11/20/18 1:00 pm <Pawel Marte - Last Filed: 11/10/18 14:55> Date of Encounter: 11/10/18 Assessment and Plan (1) Acute CVA (cerebrovascular accident) Current Visit: Yes Status: Acute I have personally performed a [id number] assessment of the patient and have reviewed the PA/ROLLER SHOP SUPERVISOR note. My impressions are as follows: I agree with Rafi's assessment and plan as stated above. If the TTE reveals a cardioembolic source then the recommendation would be for anticoagulation, otherwise maintain aspirin therapy. We will reevaluate your request. Subjective Interval history: The chart was reviewed, the patient was seen and examined independently. Case was discussed with the [employer] SAL[employer]. I agree with his documentation of the history of present illness as stated above. Carotid Doppler study revealed nonstenotic plaquing. Echocardiogram still pending. Patient did have some complaints of left leg weakness however is not very apparent on neurologic exam or on amb ulation. Objective - Constitutional Vitals: Temp Pulse Resp BP Pulse Ox 97.7 F 63 16 148/65 97 11/10/18 12:35 11/10/18 12:35 11/10/18 12:35 11/10/18 12:35 11/10/18 12:35 Exam: I have personally performed a [id number] assessment of the patient and have reviewed the PA/ROLLER SHOP SUPERVISOR note. My impressions are as follows: I agree with the neurologic examination documented by Mario as above. Results - Laboratory Findings CBC and BMP: 11/10/18 07:13 11/10/18 07:13 Abnormal lab findings: Abnormal lab results Hgb 11.0 g/dL (11.5-15.4) L 11/10/18 07:13 Hct 35.1 % (35.3-44.9) L 11/10/18 07:13 MCH 26.1 pg (28.0-33.3) L 11/10/18 07:13 MCHC 31.3 g/dL (31.6-35.5) L 11/10/18 07:13 RDW 15.3 % (11.5-14.5) H 11/10/18 07:13 PT 12.6 Seconds (9.4-12.1) H 11/10/18 07:13 BUN 28 mg/dL (8-23) H 11/10/18 07:13 1.27 mg/dL (0.60-1.20) H 11/10/18 07:13 Est GFR ( Amer) 48 (> 60) L 11/10/18 07:13 Est GFR (Non-Af Amer) 40 (> 60) L 11/10/18 07:13 Glucose 151 mg/dL (70-105) H 11/10/18 07:13 POC Glucose 139 mg/dL (70-99) H 11/10/18 05:47 7.2 % (-5.6) H 11/09/18 07:56 303 (280-300) H 11/09/18 07:52 AST 10 Units/L (13-39) L 11/10/18 07:13 6.3 g/dL (6.4-8.9) L 11/10/18 07:13 Cholesterol 254 mg/dL (< 200) H 11/10/18 07:13 LDL Cholesterol, Calc 180 mg/dL (0-99) H 11/10/18 07:13 5.5 (0-4.9) H 11/10/18 07:13
--- NOTE | 2018-11-10 11:59 | Internal Med Progress Note ---
Hospitalist Progress Note - Encounter Date of Encounter: 11/10/18 Time of Encounter: 11:57 - Subjective Interval History: Patient seen and examined in the room. She reported left-sided weakness has resolved. However, she failed transient left leg weakness this morning while standing in front of the sink. She requests a physical therapist evaluation. She denies headache, numbness tingling, or aphasia. - Exam Vitals: Temp Pulse Resp BP Pulse Ox 98.2 F 67 16 133/52 97 11/10/18 07:04 11/10/18 07:04 11/10/18 07:04 11/10/18 07:04 11/10/18 07:04 Exam: PHYSICAL EXAMINATION: GENERAL APPEARANCE: The patient is alert, oriented and in no acute distress. HEENT: Head is normocephalic. The sinuses are nontender. Pupils are equal and reactive. The nares are patent. Oropharynx clear without lesions. NECK: Supple without lymphadenopathy. HEART: Regular rate and rhythm. LUNGS: No crackles or wheezes are heard. ABDOMEN: Soft, nontender, nondistended with good bowel sounds heard. Inguinal area is normal. EXTREMITIES: Without cyanosis, clubbing or edema. NEUROLOGICAL: Gross nonfocal. SKIN: Warm and dry without any rash. - Assessment and Plan (1) Acute CVA (cerebrovascular accident) Current Visit: Yes Status: Acute Assessment and Plan: MRI brain showed acute CVA involving right basal ganglia and the right periventricular white matter. Patient presented with left-sided weakness, which has resolved. Patient was started on aspirin. Risk factors modification discussed with patient including blood pressure, glucose control, lipid control, and lifestyle modification. Pt cannot tolerate statins in the past, will start patient on questioning and Zetia. Neurology following. (2) Diabetes Current Visit: No Status: Chronic Assessment and Plan: Repeat A1c 7.1, continue home medications. (3) Hypertension Current Visit: No Status: Chronic Assessment and Plan: continue home meds with goal SBP less than 170 DBP less than 100 (4) Hypothyroidism Current Visit: Yes Status: Acute Assessment and Plan: continue home thyroxine (5) CKD (chronic kidney disease) stage 3, GFR 30-59 ml/min Current Visit: No Status: Chronic Assessment and Plan: Cr is stable around baseline, will cont to monitor renal function, renal dosing of meds per-current eGFR (6) Anemia in CKD (chronic kidney disease) Current Visit: No Status: Chronic Assessment and Plan: HGB target is 10-11 for CKD, cont. to monitor (7) DVT prophylaxis Current Visit: Yes Status: Acute Assessment and Plan: SCDs (8) Hyperlipidemia Current Visit: No Status: Chronic Assessment and Plan: At the panel showed elevated LDL and a decreased HDL. Patient cannot tolerate statins in the past. We will start patient on Questran and Zetia. - Time Spent with Patient Total time spent is greater than 50% in coordination of care (as documented) at patient's floor/unit and/or counseling patient: Greater than 35 minutes Plan of Care Discussed with: patient Internal Medicine: Result - Labs CBC & Chem 7: 11/10/18 07:13 11/10/18 07:13 Labs: Short CBC 11/10/18 Range/Units 07:13 WBC 5.9 (4.3-11.1) K/mcL Hgb 11.0 L (11.5-15.4) g/dL Hct 35.1 L (35.3-44.9) % Plt Count 225 (140-400) K/mcL Neutrophils # 4.3 (1.6-8.9) K/mcL BMP 11/10/18 07:13 Sodium 141 Potassium 4.1 Chloride 106 Carbon Dioxide 27 BUN 28 H Creatinine 1.27 H Glucose 151 H Calcium 9.6 Liver Function 11/10/18 Range/Units 07:13 Total Bilirubin 0.4 (0.3-1.0) mg/dL AST 10 L (13-39) Units/L ALT 8 (7-52) Units/L Alkaline Phosphatase 64 (34-104) Units/L Albumin 3.8 (3.5-5.7) g/dL - ABG Interpretation ABG results: PT/INR, D-dimer PT 12.6 Seconds (9.4-12.1) H 11/10/18 07:13 - Impressions Impressions Brain MRI 11/09/18 12:25 IMPRESSION: 1. Acute infarcts are noted in the posterior right putamen and posterior right periventricular white matter. 2. Minimal chronic microvascular white matter ischemic disease. D/ / 11/09/2018 15:19:33 Jarrod Tran MD / Teri Varela Interpreting Provider: Jarrod Tran MD Consult Discharge Plan - Plan Instructions: Transient Ischemic Attack (GEN), Diabetes Mellitus Type 2 in Adults (DC) Referrals: Nacho Rai MD [Primary Care Provider] - 11/20/18 1:00 pm (2) Diabetes Qualifiers: Diabetes mellitus type: type 2 Diabetes mellitus intermediate frame tender insulin use: unspecified alf insulin use status Diabetes mellitus complication status: with unspecified complications Qualified Code(s): E11.8 - Type 2 diabetes mellitus with unspecified complications (3) Hypertension Qualifiers: Hypertension type: unspecified Qualified Code(s): I10 - Essential (primary) hypertension (4) Hypothyroidism Qualifiers: Qualified Code(s): E03.9 - Hypothyroidism, unspecified (6) Anemia in CKD (chronic kidney disease) Qualifiers: Qualified Code(s): N18.9 - Chronic kidney disease, unspecified; D63.1 - Anemia in chronic kidney disease (8) Hyperlipidemia Qualifiers: Hyperlipidemia type: unspecified Qualified Code(s): E78.5 - Hyperlipidemia, unspecified
[2018-11-10] MEDS: Acetaminophen 325 MG TABLET PO PRN ×2 (13:03→19:17)
[2018-11-10] MEDS: *HR* Heparin 5,000 UNIT/ML VIAL SQ SCH (19:18)
[2018-11-10] MEDS ORDERED: Insulin LISPRO 300 UNITS/3 ML VIAL SQ SCH (21:00)
[2018-11-11] MEDS: *HR* Heparin 5,000 UNIT/ML VIAL SQ SCH (06:04)
[2018-11-11] MEDS ORDERED: Insulin LISPRO 300 UNITS/3 ML VIAL SQ SCH (07:30)
[2018-11-11 07:47] VITALS: BP 143/84
[2018-11-11] MEDS: Aspirin 81 MG TAB.CHEW PO SCH (07:57)
[2018-11-11] MEDS: *HR* SitaGLIPtin 25 MG TABLET PO SCH (07:57)
--- NOTE | 2018-11-11 08:55 | Discharge Summary ---
- NOTES TO OUTPATIENT PROVIDER Notes to Outpatient Provider: f/u with PCP within a week. f/u with neurology within a month. Date of Encounter: 11/11/18 Time of Encounter: 08:52 - Discharge Diagnosis (1) Acute CVA (cerebrovascular accident) Priority: Primary Status: Acute (2) Diabetes Priority: Secondary Status: Chronic Qualifiers: Diabetes mellitus type: type 2 Diabetes mellitus fpc insulin use: unspecified fpc insulin use status Diabetes mellitus complication status: with unspecified complications Qualified Code(s): E11.8 - Type 2 diabetes mellitus with unspecified complications (3) Hypertension Priority: Secondary Status: Chronic Qualifiers: Hypertension type: unspecified Qualified Code(s): I10 - Essential (primary) hypertension (4) Hypothyroidism Priority: Secondary Status: Chronic Qualifiers: Qualified Code(s): E03.9 - Hypothyroidism, unspecified (5) CKD (chronic kidney disease) stage 3, GFR 30-59 ml/min Priority: Secondary Status: Chronic (6) Anemia in CKD (chronic kidney disease) Priority: Secondary Status: Chronic Qualifiers: Qualified Code(s): N18.9 - Chronic kidney disease, unspecified; D63.1 - Anemia in chronic kidney disease (7) DVT prophylaxis Priority: Primary Status: Acute (8) Hyperlipidemia Priority: Secondary Status: Chronic Qualifiers: Hyperlipidemia type: unspecified Qualified Code(s): E78.5 - Hyperlipidemia, unspecified Hospital course: Ms. Couch is a 88 year old female with past medical history of diabetes mellitus, hypertension who presented to the emergency room department with acute onset of left-sided weakness that started early this morning. The patient stated that she has never had similar symptoms in the past and she was concern about the possibility that she might have stroke so she called 911, open on arrival to the ER the patient stated had her acute symptoms for almost an hour prior to her arrival. Stroke alert was called , however by the time [facility] staff was contacted the repeat NIH scale was 0 0.0. CAT scan of the head was was no significant evidence of intracranial bleed, she was admitted for further evaluation and management of TIA. MRI of brain showed acute CVA involving right basal ganglia and periventricular white matter. Bilateral carotid Doppler showed nonstenotic plaque. Labs showed abnormal lipid panel including elevated LDL and decreased HDL. Patient was placed on aspirin in the past, but has been discontinued for long time because of reported nosebleeding. Neurology was consulted, aspirin was restarted. She is intolerant to statins because of severe muscle pain, Zetia was started. Risk factor modification including blood pressure, blood glucose, and a lipid level control were discussed with patient. She passed swallow evaluation, PT/OT evaluation showed no physical therapy need. Patient is discharged home today, she was instructed to continue follow-up with PCP and neurology as scheduled. Discharge discussed with: patient Time spent discussing smoking cessation with patient: more than 10 minutes - Time Spent with Patient Total time spent providing and/or coordinating discharge services: Time spent: Greater than 30 minutes - Discharge Medications Prescriptions: New Ezetimibe [Zetia] 10 mg PO BID #60 tablet Continued Losartan Potassium [Cozaar] 100 mg PO QAM Amlodipine Besylate 10 mg PO QAM Levothyroxine [Synthroid] 175 mcg PO QAM Chlorthalidone 25 mg PO QPM Aspirin [Lo-Dose Aspirin EC] 81 mg PO QAM Sitagliptin Phosphate [Januvia] 50 mg PO QAM Vit C/E/Zn/Coppr/Lutein/Zeaxan [Preservision Areds 2 Softgel] 2 cap PO QAM Home Medications: Amlodipine Besylate 10 mg PO QAM 11/09/18 [History] Chlorthalidone 25 mg PO QPM 11/09/18 [History] Levothyroxine [Synthroid] 175 mcg PO QAM 11/09/18 [History] Losartan Potassium [Cozaar] 100 mg PO QAM 11/09/18 [History] Aspirin [Lo-Dose Aspirin EC] 81 mg PO QAM 11/10/18 [History] Sitagliptin Phosphate [Januvia] 50 mg PO QAM 11/10/18 [History] Vit C/E/Zn/Coppr/Lutein/Zeaxan [Preservision Areds 2 Softgel] 2 cap PO QAM 11/10/18 [History] Ezetimibe [Zetia] 10 mg PO BID #60 tablet 11/11/18 [Rx] Allergies/Adverse Reactions: Allergy/AdvReac Type Severity Reaction Status Date / Time Amoxicillin Allergy Rash Verified 11/10/18 22:00 Date of admission: 11/10/18 12:37 Primary care physician: Nacho Rai MD Consults: 05/30/19 12:25 Consult for Pharmacy Education [CONS] Routine Reason for Consult: TIA Time Notified: 12:30 Call Completed: No Consult to Physical Therapy [CONS] Routine Comment: Evaluate, develop and implement POC Reason for Consult: TIA Does patient have active BEDREST order?: Yes Is patient medically & hemodynamically stable?: Yes Patient assessed for mobility or mobilized this visit?: Yes 11/09/18 12:27 Consult to Physician [CONS] Routine Consulting Provider: Venus Westfall I Reason for Consult: TIA Time Notified: 12:28 Call Completed: No 11/09/18 13:19 Consult to Healthcare Or Medical [CONS] Routine Reason for SW Consult: discharge needs/medical expense/coverage Anticipated date of discharge: 11/11/18 - Constitutional Vitals: Temp Pulse Resp BP Pulse Ox 98 F 68 17 143/84 98 11/11/18 07:45 11/11/18 07:45 11/11/18 07:45 11/11/18 07:45 11/11/18 07:45 General appearance: Present: A&O X 3 Exam: PHYSICAL EXAMINATION: GENERAL APPEARANCE: The patient is alert, oriented and in no acute distress. HEENT: Head is normocephalic. The sinuses are nontender. Pupils are equal and reactive. The nares are patent. Oropharynx clear without lesions. NECK: Supple without lymphadenopathy. HEART: Regular rate and rhythm. LUNGS: No crackles or wheezes are heard. ABDOMEN: Soft, nontender, nondistended with good bowel sounds heard. Inguinal area is normal. EXTREMITIES: Without cyanosis, clubbing or edema. NEUROLOGICAL: Gross nonfocal. SKIN: Warm and dry without any rash. - Patient Status Disposition: Home, Self-Care Condition: Fair Functional capacity at discharge: independent ambulation Overall status at discharge: patient is progressing back to baseline - Discharge Instructions Instructions: Transient Ischemic Attack (GEN), Diabetes Mellitus Type 2 in Adults (DC) Follow Up With: Nacho Rai MD [Primary Care Provider] - 11/20/18 1:00 pm - Diet and Activity Activity: increase activity as tolerated Diet: diabetic diet, low fat, low cholesterol, low salt diet
== END 2018-11-11 09:42 | disposition home or self-care (01) | DRG 65 ==
LOC: 3BNU 07:01 → EMEROOARM 07:01 → 3BNU 12:55
PROVIDERS: ADMIT Internal Medicine Nephrology; ATTEND Internal Medicine Nephrology